=== PATIENT | female | born 1950 | race Caucasian/White ===

== ENCOUNTER → 2017-02-13 | Outpatient (CLI) | payer MEDICARE ==
--- NOTE | 2017-02-13 20:39 | RADIOLOGY REPORT PS360 ---
PROCEDURE: 2-D M-mode and color Doppler study INDICATIONS FOR THE TEST: Chest pain COPD Heart Murmur Tobacco Smoking Palpitations Fatigue Syncope Edema Hypertension Diabetes Mellitus Rheumatic Fever SOB+CAMARGO Obesity Hyperlipidemia Family History HD Additional History PATIENT INFORMATION HEIGHT:62 WEIGHT:137 GENDER: Female B/P:121/68 2-D/M-MODE INTERPRETATION: 2-D MEASUREMENTS OBSERVED VALUES IN CMS Right Ventricular Dimension (RVDd) 2.2 Interventricular Septum (Thickness)(IVsd) 1.3 Left Ventricular Internal Dimensions(LVIDd) 2.7 Left Ventricular Posterior Wall (Thickness)(LVPWd) 1.3 Aortic Root 3.2 Aortic Cusp Separation 2.0 Left Atrial Dimensions (LAD) 4.1 2D 1. Left atrium is mildly enlarged, left ventricle is normal size, there is mild concentric left ventricular hypertrophy present, visually estimated ejection fraction 55% with no obvious regional wall motion abnormality. 2. The right atrium and right ventricle are relatively normal size and function. 3. The aortic valve is thickened and calcified leaflet continue to display mobility. 4. The mitral and tricuspid valve leaflets are minimally thickened. 5. The pulmonic valve is poorly visualized. 6. No significant pericardial effusion noted. DOPPLER INTERROGATION: Doppler interrogation of the aortic, mitral and tricuspid valvular presence of mild mitral and tricuspid regurgitation, tricuspid regurgitant jet velocity insufficient for calculation of the right ventricular systolic pressure, grade 1 diastolic dysfunction seen without tissue Doppler evidence of raised left atrial pressure. CONCLUSION: 1. Mildly left atrium, normal left ventricular size, mild concentric left ventricular hypertrophy, visually estimated ejection fraction 55% with no obvious regional wall motion abnormality, grade 1 diastolic dysfunction seen without tissue Doppler evidence of raised left atrial pressure. 2. Mild mitral and tricuspid regurgitation. 3. No significant pericardial effusion noted.
--- NOTE | 2017-02-14 09:45 | RADIOLOGY REPORT PS360 ---
CARDIOLITE SPECT MYOCARDIAL PERFUSION SCAN, REST AND STRESS: EXERCISE STRESS [facility] REVIEW QGS EF AND WALL MOTION EVALUATION: QPS - PERFUSION EVALUATION HISTORY: ANGINA DOSE: 10.51 mCi technetium 99m mibi intravenously at rest followed by 30.8 mCi technetium 99m mibi following the intravenous ministration of 0.4 mg of Lexiscan. Resting blood pressure is 121/68. Stress blood pressure 105/54. FINDINGS: Ejection fraction is calculated to be 68. IMPRESSION: CARDIOLITE SPECT MYOCARDIAL PERFUSION SCAN, REST AND STRESS: EXERCISE STRESS [facility] REVIEW QGS EF AND WALL MOTION EVALUATION: QPS - PERFUSION EVALUATION HISTORY: CAD, ANGINA, CAB DOSE: 10.96 mCi technetium 99m mibi intravenously at rest followed by 30.1 mCi technetium 99m mibi following the intravenous ministration of 0.4 mg of Lexiscan. Resting blood pressure is 146/69. Stress blood pressure 132/64. FINDINGS: Ejection fraction is calculated to be 68. Stress images reveal severely decreased activity in the anterior and septal wall while rest images reveal slight improvement in the anterior apical wall IMPRESSION: High risk abnormal Myoview. The anterior wall has normal function therefore this is most suggestive of severe reversible ischemia in the anteroseptal wall. Normal ejection fraction normal wall motion
--- NOTE | 2017-02-14 09:45 | RADIOLOGY REPORT PS360 ---
CARDIOLITE SPECT MYOCARDIAL PERFUSION SCAN, REST AND STRESS: EXERCISE STRESS [facility] REVIEW QGS EF AND WALL MOTION EVALUATION: QPS - PERFUSION EVALUATION HISTORY: ANGINA DOSE: 10.51 mCi technetium 99m mibi intravenously at rest followed by 30.8 mCi technetium 99m mibi following the intravenous ministration of 0.4 mg of Lexiscan. Resting blood pressure is 121/68. Stress blood pressure 105/54. FINDINGS: Ejection fraction is calculated to be 68. IMPRESSION: CARDIOLITE SPECT MYOCARDIAL PERFUSION SCAN, REST AND STRESS: EXERCISE STRESS [facility] REVIEW QGS EF AND WALL MOTION EVALUATION: QPS - PERFUSION EVALUATION HISTORY: CAD, ANGINA, CAB DOSE: 10.96 mCi technetium 99m mibi intravenously at rest followed by 30.1 mCi technetium 99m mibi following the intravenous ministration of 0.4 mg of Lexiscan. Resting blood pressure is 146/69. Stress blood pressure 132/64. FINDINGS: Ejection fraction is calculated to be 68. Stress images reveal severely decreased activity in the anterior and septal wall while rest images reveal slight improvement in the anterior apical wall IMPRESSION: High risk abnormal Myoview. The anterior wall has normal function therefore this is most suggestive of severe reversible ischemia in the anteroseptal wall. Normal ejection fraction normal wall motion
== END ==
LOC: RAD 07:25
DX: I20.8 Other forms of angina pectoris (principal)
CPT/HCPCS: A9502; J2785

== ENCOUNTER → 2017-02-17 | Day surgery (SDC) | payer MEDICARE ==
[2017-02-17 08:05] LABS: HEMOGLOBIN 11.7 g/dL (12.2-16.2); LYMPH # 2.8 K/mm3 (0.7-4.5); LYMPH % 41.2 % (10-50.0)
[2017-02-17 08:11] LABS: BUN 15 mg/dL (7-18)
[2017-02-17 08:13] LABS: GFR (ESTIMATED) 72 ML/MIN (59-)
[2017-02-17 12:35] VITALS: BP 133/64
--- NOTE | 2017-02-17 12:36 | RADIOLOGY REPORT PS360 ---
CARDIAC CATHETERIZATION DATE OF CATHETERIZATION:02/17/2017 12:08 PM PROCEDURES: 1. Left heart catheterization 2. Left ventriculogram 3. Selective coronary angiogram INDICATION FOR TEST: 1. Abnormal Myoview 2. Angina pectoris 3. Numerous risk factors for coronary artery disease Informed consent was obtained prior to the procedure. COMPLICATIONS: None ESTIMATED BLOOD LOSS: Less than 10 ml. TECHNIQUE: One percent lidocaine used to anesthetize the right anterior aspect of the wrist. The right radial artery was accessed via the Seldinger technique. A 6 Austrian sheath was placed in the right radial artery. 2.5 mg of verapamil, 800 mcg of nitroglycerin and 5000 U Heparin were given through the arterial sheath. The trap catheter was also used to perform left heart catheterization and left ventriculography. At the end of the procedure the patient was transferred to the post-op holding area in stable condition for arterial sheath removal. ANGIOGRAPHIC RESULTS: 1. The left main artery normal 2. The left anterior descending artery has proximal 20 and 30% eccentric stenoses luminal irregularities in the mid segment 3. The circumflex artery is a large dominant vessel with mild luminal irregularities 4. The right coronary artery vestigial vessel and normal 5. The JOHNSON ventriculogram reveals 65% 6. The left ventricular end-diastolic pressure 20 mmHg IMPRESSION: 1. Mild nonflow limiting coronary artery disease 2. Normal ejection fraction 3. Mildly elevated LVEDP PLAN: 1. Medical management 2. LDL less than 55 3. Patient may benefit from low dose diuretics in order to decrease LVEDP
[2017-02-17 14:53] VITALS: BP 133/64
== END ==
LOC: CATHLAB 07:14
PROVIDERS: Internal Medicine
PROC: B2111ZZ Fluoroscopy of Multiple Coronary Arteries using Low Osmolar Contrast (ICD-10-PCS; 2017-02-17)
PROC: B2151ZZ Fluoroscopy of Left Heart using Low Osmolar Contrast (ICD-10-PCS; 2017-02-17)
PROC: 4A023N7 Measurement of Cardiac Sampling and Pressure, Left Heart, Percutaneous Approach (ICD-10-PCS; principal; 2017-02-17 15:00)
DX: I25.119 Atherosclerotic heart disease of native coronary artery with unspecified angina pectoris (principal); R94.39 Abnormal result of other cardiovascular function study
CPT/HCPCS: C1725; C1769; J1644; Q9967